=== PATIENT | female | born 1990 | race Two or more races ===

== ENCOUNTER 2016-05-10 12:51 | Emergency (ER) | payer MEDICAID ==
[~2016-05-10] VITALS: Ht 154.9 cm; Wt 99.8 kg
[2016-05-10 13:24] VITALS: BP 145/94
[2016-05-10] MEDS ORDERED: SUMAtriptan SUCCINATE 6 MG/0.5 ML VL SC ONE (13:30)
[2016-05-10] MEDS ORDERED: ONDANSETRON HCL 4 MG/2 ML VIAL IM ONE (13:30)
[2016-05-10] MEDS ORDERED: HYDROmorphone HCL 2 MG/ML VL IM ONE (13:30)
== END 2016-05-10 14:56 | disposition home or self-care (01) ==
LOC: ER 12:51
DX: G43.909 Migraine, unspecified, not intractable, without status migrainosus (principal); J45.909 Unspecified asthma, uncomplicated
CPT/HCPCS: 96372; 99284; J1170; J2405; J3030